=== PATIENT | female | born 1970 | race Hispanic/Latino ===

== ENCOUNTER 2020-05-06 09:30 | Outpatient (CLI) | payer OTHER ==
[2020-05-06] MEDS ORDERED: ALBUTEROL 2.5 MG/3 ML NEBU IH ONE (10:25)
== END 2020-05-06 09:31 | disposition home or self-care (01) ==
LOC: PF 09:30
PROVIDERS: ATTEND Internal Medicine
DX: R06.02 Shortness of breath (principal); F31.81 Bipolar II disorder; F60.0 Paranoid personality disorder; F41.8 Other specified anxiety disorders
CPT/HCPCS: 94060; 94640; 94729; A9270